=== PATIENT | male | born 1950 | race Caucasian/White ===

== ENCOUNTER → 2016-12-02 | Outpatient (CLI) | payer MEDICARE | LOC: M SMT 11:17 | PROVIDERS: ATTEND Urology | DX: R97.20 Elevated prostate specific antigen [PSA] (principal) ==

== ENCOUNTER → 2017-01-12 | Outpatient (CLI) | payer MEDICARE ==
[2017-01-14 00:12] LABS: PSA % FREE 9.6 % (.); PSA FREE 0.54 ng/mL; PSA TOTAL 5.6 ng/mL (0.0-4.0)
== END ==
LOC: M SMT 10:07
PROVIDERS: ATTEND Nurse Practitioner Women's Health
DX: R97.20 Elevated prostate specific antigen [PSA] (principal)

== ENCOUNTER 2017-06-09 08:11 | Outpatient (CLI) | payer MEDICARE ==
[~2017-06-09] VITALS: Ht 182.9 cm; Wt 82.6 kg
[~2017-06-09 08:11] MED LIST: ASPI1TAB PO; GLUC1CAP10 PO; MULT1TAB10 PO
[2017-06-09] MEDS ORDERED: NS 1,000 ML IV ONE (08:30)
[2017-06-09] MEDS ORDERED: PROPOFOL 200 MG/20 ML VIAL As Ordered ONE (08:39)
--- NOTE | 2017-06-09 09:21 | ROOR ---
Patient Name: Toni Leahy Procedure Date: 06/09/2017 8:58 AM Date of : 1950 Age: 67 Room: [facility] Gender: Male Note Status: Finalized Procedure: Total Colonoscopy to Cecum + Biopsy Polypectomy Indications: Screening for colorectal malignant neoplasm, Last colonoscopy: 2005 Providers: Magen Benjamin MD Referring MD: Malika Huang Requesting Provider: Medicines: Monitored Anesthesia Care Complications: No immediate complications. Procedure: Pre-Anesthesia Assessment: - The heart rate, respiratory rate, oxygen saturations, blood pressure, adequacy of pulmonary ventilation, and response to care were monitored throughout the procedure. The Colonoscope was introduced through the anus and advanced to the cecum, identified by appendiceal orifice and ileocecal valve. The colonoscopy was performed without difficulty. The patient tolerated the procedure well. The quality of the bowel preparation was excellent. Findings: The perianal and digital rectal examinations were normal. Non-bleeding internal hemorrhoids were found during retroflexion. The hemorrhoids were small and Grade I (internal hemorrhoids that do not prolapse). A few small-mouthed diverticula were found in the recto-sigmoid colon and sigmoid colon. A diminutive polyp was found in the hepatic flexure. The polyp was sessile. The polyp was removed with a jumbo cold forceps. Resection and retrieval were complete. The exam was otherwise without abnormality on direct and retroflexion views. Impression: - Non-bleeding internal hemorrhoids. - Diverticulosis in the recto-sigmoid colon and in the sigmoid colon. - One diminutive polyp at the hepatic flexure, removed with a jumbo cold forceps. Resected and retrieved. - The examination was otherwise normal on direct and retroflexion views. - The exam was otherwise normal to the cecum. Recommendation: - Patient has a contact number available for emergencies. The signs and symptoms of potential delayed complications were discussed with the patient. Return to normal activities tomorrow. Written discharge instructions were provided to the patient. - High fiber diet. - Discharge patient to home. - Continue present medications. - Await pathology results. - Telephone GI clinic for pathology results in 1 week. - Repeat colonoscopy in 10 years for surveillance based on pathology results. - Return to referring physician. - The findings and recommendations were discussed with the patient's family. Magen Benjamin MD Magen Benjamin MD 06/09/2017 9:20:49 AM This report has been signed electronically. Number of Addenda: 0 Note Initiated On: 06/09/2017 8:58 AM Estimated Blood Loss: Estimated blood loss: none.
[2017-06-09 09:39] VITALS: BP 117/67
== END 2017-06-09 09:40 | disposition home or self-care (01) ==
LOC: M OPP 08:11
PROVIDERS: ATTEND Internal Medicine Gastroenterology
DX: Z12.11 Encounter for screening for malignant neoplasm of colon (principal); D12.3 Benign neoplasm of transverse colon; K64.0 First degree hemorrhoids; K57.30 Diverticulosis of large intestine without perforation or abscess without bleeding; E78.5 Hyperlipidemia, unspecified; R06.83 Snoring; Z79.82 Long term (current) use of aspirin; Z79.899 Other long term (current) drug therapy

== ENCOUNTER → 2018-02-23 | Outpatient (CLI) | payer MEDICARE ==
[2018-02-23 19:24] LABS: ALBUMIN 3.9 GM/DL (3.2-5.2); ALKALINE PHOSPHATASE 80 U/L (45-117); AST/SGOT 24 U/L (7-37); BILIRUBIN,TOTAL 0.5 MG/DL (0.2-1.0); BLOOD UREA NITROGEN 18 MG/DL (7-18); CARBON DIOXIDE LEVEL 31 MEQ/L (21-32); CHLORIDE LEVEL 107 MEQ/L (98-107); CREATININE FOR GFR 0.84 MG/DL (0.70-1.30); GLUCOSE, FASTING 103 MG/DL (70-100); POTASSIUM SERUM 4.8 MEQ/L (3.5-5.1); SODIUM LEVEL 144 MEQ/L (136-145)
[2018-02-23 19:34] LABS: ALT/SGPT 32 U/L (12-78)
[2018-02-23 19:50] LABS: TOTAL PROTEIN 6.5 GM/DL (6.4-8.2)
[2018-02-23 20:52] LABS: ANION GAP 6 MEQ/L (8-16)
== END ==
LOC: M SMT 11:36
DX: R97.20 Elevated prostate specific antigen [PSA] (principal)
CPT/HCPCS: 80053

== ENCOUNTER → 2018-03-01 | Outpatient (CLI) | payer MEDICARE ==
[~2018-03-01] MED LIST changes: -ASPI1TAB PO; -GLUC1CAP10 PO; -MULT1TAB10 PO; +PROHANCE 279.3MG/ML 15ML VIAL (A9576) As Ordered; +PROHANCE 279.3MG/ML 5ML VIAL (A9576) As Ordered
== END ==
LOC: M RAD 14:34
DX: R97.20 Elevated prostate specific antigen [PSA] (principal); N40.0 Benign prostatic hyperplasia without lower urinary tract symptoms; R93.8 Abnormal findings on diagnostic imaging of other specified body structures
CPT/HCPCS: A9576

== ENCOUNTER → 2018-05-07 | Outpatient (CLI) | payer MEDICARE | LOC: M SMT PRO 08:30 | DX: R97.20 Elevated prostate specific antigen [PSA] (principal) | CPT/HCPCS: G0416 ==

== ENCOUNTER → 2019-05-16 | Outpatient (CLI) | payer MEDICARE ==
[~2019-05-16] MED LIST changes: +ASPI81TA26 PO; +GLUC1CAP10 PO; +MULT1TAB10 PO; -PROHANCE 279.3MG/ML 15ML VIAL (A9576) As Ordered; -PROHANCE 279.3MG/ML 5ML VIAL (A9576) As Ordered
[2019-05-17 14:08] LABS: PSA % FREE 9.4 % (.); PSA FREE 0.76 ng/mL; PSA TOTAL 8.1 ng/mL (0.0-4.0)
== END ==
LOC: M SMT 10:33
PROVIDERS: ATTEND Urology
DX: R97.20 Elevated prostate specific antigen [PSA] (principal)

== ENCOUNTER → 2020-06-13 | Outpatient (REF) | payer MEDICARE | LOC: M PLALAB 10:11 | PROVIDERS: ATTEND Nurse Practitioner Women's Health | DX: R97.20 Elevated prostate specific antigen [PSA] (principal) ==

== ENCOUNTER → 2021-05-22 | Outpatient (CLI) | payer MEDICARE ==
[2021-05-23 20:08] LABS: PSA TOTAL 2.6 ng/mL (0.0-4.0)
== END ==
LOC: M PLALAB 09:21
PROVIDERS: ATTEND Urology
DX: R97.20 Elevated prostate specific antigen [PSA] (principal)

== ENCOUNTER 2022-01-23 12:59 | Emergency (ER) | payer MEDICARE ==
[~2022-01-23] VITALS: Ht 182.9 cm; Wt 82.7 kg
[2022-01-23] MEDS ORDERED: SIMV20TA22 (13:20)
[2022-01-23] MEDS ORDERED: FINA5TAB2 (13:20)
[2022-01-23 18:20] VITALS: BP 150/80
== END 2022-01-23 18:21 | disposition home or self-care (01) ==
LOC: M ED 12:59
DX: R22.9 Localized swelling, mass and lump, unspecified (principal); M79.661 Pain in right lower leg; E78.5 Hyperlipidemia, unspecified; K46.9 Unspecified abdominal hernia without obstruction or gangrene; Z79.899 Other long term (current) drug therapy

== ENCOUNTER → 2022-06-13 | Outpatient (CLI) | payer MEDICARE ==
[~2022-06-13] MED LIST changes: +FINA5TAB2; +SIMV20TA22
== END ==
LOC: M PLALAB 12:41
PROVIDERS: ATTEND Nurse Practitioner Women's Health
DX: N40.1 Benign prostatic hyperplasia with lower urinary tract symptoms (principal); R97.20 Elevated prostate specific antigen [PSA]
CPT/HCPCS: 36415; G0103

== ENCOUNTER → 2023-05-15 | Outpatient (CLI) | payer MEDICARE | LOC: M PLALAB 10:13 | PROVIDERS: ATTEND Nurse Practitioner Women's Health | DX: R97.20 Elevated prostate specific antigen [PSA] (principal) ==

== ENCOUNTER → 2024-04-29 | Outpatient (CLI) | payer MEDICARE | LOC: M PLALAB 11:13 | PROVIDERS: ATTEND Physician Assistant | DX: R97.20 Elevated prostate specific antigen [PSA] (principal) ==

== ENCOUNTER → 2025-05-09 | Outpatient (CLI) | payer MEDICARE | LOC: M PLALAB 11:15 | PROVIDERS: ATTEND Physician Assistant | DX: R97.20 Elevated prostate specific antigen [PSA] (principal) ==